=== PATIENT | female | born 2000 | race Caucasian/White ===

== ENCOUNTER 2023-06-19 16:02 | Outpatient (CLI) | payer BC, SELFPAY | END 2023-06-19 16:03 | disposition home or self-care (01) | LOC: NFLDREF 06-20 10:33 | PROVIDERS: Visit Provider Registered Nurse | DX: N91.2 Amenorrhea, unspecified (principal); Z13.9 Encounter for screening, unspecified; Z13.6 Encounter for screening for cardiovascular disorders | CPT/HCPCS: 80061; 83498; 84146; 84270; 84402; 84403; 84443 ==

== ENCOUNTER 2024-04-28 15:29 | Outpatient (CLI) | payer BC, OTHER, SELFPAY ==
--- NOTE | 2024-04-28 15:45 | CRLHL7_ITS ---
For Patients: As a result of the Century Cures Act, medical imaging exams and procedure reports are released immediately into your electronic medical record. You may view this report before your referring provider. If you have questions, please contact your health care provider. INDICATION: First trimester scan, establish dates. COMPARISON: None. TECHNIQUE: Real-time givens-scale imaging of the pelvis was performed. FINDINGS: Sonographic imaging demonstrates a single living intrauterine gestation. The embryo demonstrates a regular cardiac rate measuring 171 beats per minute. The embryo`s crown-rump length measurement of 2.1 cm corresponds to a gestational age of 8 weeks 5 days with a sonographic due date of 12/03/2024. There is a normal-appearing yolk sac. Umbilical cord cyst is present measuring 3 x 3 x 3 millimeters. The gestational sac has a normal appearance. There is no evidence of a perigestational hemorrhage. The amount of fluid within the sac appears appropriate for gestational age. The cervix is closed. The myometrium appears normal. The ovaries are of normal size. Corpus luteal cyst right ovary. There are no suspicious fluid collections noted in the cul-de-sac. IMPRESSION: Single living intrauterine with sonographic gestational age 8 weeks 5 days and sonographic due date of 12/03/2024. Umbilical cord cyst measures 3 x 3 x 3 millimeters. Short-term follow-up could be considered. Dictated by Daniel Garcia MD @ 04/29/2024 11:22:40 AM (Electronically Signed)
== END 2024-04-28 15:30 | disposition home or self-care (01) ==
PROVIDERS: Visit Provider Physician Assistant
DX: Z34.91 Encounter for supervision of normal pregnancy, unspecified, first trimester (principal); Z3A.08 8 weeks gestation of pregnancy
CPT/HCPCS: 76817

== ENCOUNTER 2024-04-28 17:03 | Outpatient (CLI) | payer BC, OTHER, SELFPAY ==
[2024-04-29 00:18] LABS: Chlamydia DNA Amplified* NOT DETECTED (No Detected); GC DNA Amplified* NOT DETECTED (No Detected)
== END 2024-04-28 17:04 | disposition home or self-care (01) ==
PROVIDERS: Visit Provider Physician Assistant
DX: Z34.91 Encounter for supervision of normal pregnancy, unspecified, first trimester (principal); Z12.4 Encounter for screening for malignant neoplasm of cervix; Z3A.09 9 weeks gestation of pregnancy
CPT/HCPCS: 83021; 86592; 86703; 86704; 86706; 86762; 86787; 86803; 86850; 86900; 86901; 87086; 87340; 87491; 87591; 87624; 87625; 88141; 88142

== ENCOUNTER 2024-05-07 15:34 | Outpatient (CLI) | payer BC, OTHER, SELFPAY | END 2024-05-07 15:35 | disposition home or self-care (01) | PROVIDERS: Visit Provider Obstetrics & Gynecology | DX: Z34.91 Encounter for supervision of normal pregnancy, unspecified, first trimester (principal); Z3A.10 10 weeks gestation of pregnancy | CPT/HCPCS: 82565; 82570; 84156; 84450; 84460 ==

== ENCOUNTER 2024-05-25 12:20 | Outpatient (CLI) | payer BC, OTHER, SELFPAY | END 2024-05-25 12:21 | disposition home or self-care (01) | LOC: NFLDREF 05-27 10:47 | PROVIDERS: PCP Obstetrics & Gynecology; Visit Provider Obstetrics & Gynecology | DX: O16.1 Unspecified maternal hypertension, first trimester (principal) | CPT/HCPCS: 82570; 84156 ==

== ENCOUNTER 2024-05-26 12:11 | Outpatient (CLI) | payer BC, OTHER, SELFPAY ==
--- NOTE | 2024-05-26 12:15 | CRLHL7_ITS ---
For Patients: As a result of the Cures Act, medical imaging exams and procedure reports are released immediately into your electronic medical record. You may view this report before your referring provider. If you have questions, please contact your health care provider. INDICATION: Follow-up umbilical cord cyst COMPARISON: 04/28/2024 TECHNIQUE: Real-time givens-scale imaging of the pelvis was performed. FINDINGS: Sonographic imaging demonstrates a single living intrauterine gestation. The embryo demonstrates a regular cardiac rate measuring 178 beats per minute. The embryo`s crown-rump length measurement of 6.3 cm corresponds to a gestational age of 12 weeks 5 days with a sonographic due date of 12/03/2024. The yolk sac is not visualized. There are no gross abnormalities noted within the embryo at this early state of development. The gestational sac has a normal appearance. There is no evidence of a perigestational hemorrhage. The amount of fluid within the sac appears appropriate for gestational age. Normal left ovary. Right ovary not visualized. Previously noted umbilical cord cyst is no longer present IMPRESSION: Single living intrauterine with sonographic gestational age 12 weeks 5 days and sonographic due date of 12/03/2024. Resolution of previously noted umbilical cord cyst. Dictated by Daniel Garcia MD @ 05/27/2024 10:20:58 AM (Electronically Signed)
== END 2024-05-26 12:12 | disposition home or self-care (01) ==
LOC: US 12:12
PROVIDERS: Visit Provider Physician Assistant
DX: O35.03X0 Maternal care for (suspected) central nervous system malformation or damage in fetus, choroid plexus cysts, not applicable or unspecified (principal); Z3A.12 12 weeks gestation of pregnancy
CPT/HCPCS: 76816

== ENCOUNTER 2024-07-02 07:58 | Outpatient (CLI) | payer BC, OTHER, SELFPAY | END 2024-07-02 07:59 | disposition home or self-care (01) | LOC: US 07:59 | PROVIDERS: Visit Provider Midwife | DX: O99.212 Obesity complicating pregnancy, second trimester (principal); Z68.42 Body mass index [BMI] 45.0-49.9, adult; Z3A.18 18 weeks gestation of pregnancy | CPT/HCPCS: 76811 ==

== ENCOUNTER 2024-07-30 14:05 | Outpatient (CLI) | payer BC, OTHER, SELFPAY | END 2024-07-30 14:06 | disposition home or self-care (01) | LOC: US 14:06 | PROVIDERS: Visit Provider Obstetrics & Gynecology | DX: O99.212 Obesity complicating pregnancy, second trimester (principal); E66.01 Morbid (severe) obesity due to excess calories; Z68.42 Body mass index [BMI] 45.0-49.9, adult; Z3A.22 22 weeks gestation of pregnancy | CPT/HCPCS: 76816 ==

== ENCOUNTER 2024-09-12 09:09 | Outpatient (CLI) | payer BC, OTHER, SELFPAY ==
--- NOTE | 2024-09-12 09:15 | CRLHL7_ITS ---
For Patients: As a result of the Cures Act, medical imaging exams and procedure reports are released immediately into your electronic medical record. You may view this report before your referring provider. If you have questions, please contact your health care provider. OB ULTRASOUND JESSICA by LMP or US: 11/30/2024. GA: 28 w, 5 d. Single. Comparison: 07/30/2024, 07/02/2024, 05/26/2024. INDICATION: Essential primary hypertension. TECHNIQUE: Real time grayscale imaging of the fetus was performed. Transabdominal. CERVIX: Not visualized. POSITIONING: Vertex. AMNIOTIC FLUID: 5.2 cm. SDP (N: greater than 2 x 1 cm) PLACENTA: Technique: Transabdominal. PLACENTA POSITION: Anterior. DOPPLER: heart rate: 152 bpm. BIOMETRY: BPD: 7.5 cm. 29 w, 6 d, 75 percent. HC: 26.4 cm. 28 w, 5 d, 19 percent. AC: 25.7 cm. 29 w, 6 d, 77 percent. FL: 5.4 cm. 28 w, 3 d, 25 percent. FL/AC ratio: 20.82 percent. HC/AC ratio: 1.03. EFW: 1364 g. Weight: 3 lbs, 0 oz. age by this US: 29 w, 2 d. JESSICA by this US: 11/26/2024. Percentile by JESSICA: 58 percent. IMPRESSION: 1. Sonographic gestational age 29 weeks 2 days and sonographic due date 11/26/2024. Sonographic age is 4 days ahead of clinical age. 2. Estimated weight 58th percentile. Abdominal circumference 77th percentile. Daniel Garcia M.D. Diagnostic Radiologist [email or web address] ISABELLA/maria isabel nicolas/Dictated by: Daniel Garcia MD @ 09/12/2024 10:16:00 AM (Electronically Signed)
== END 2024-09-12 09:10 | disposition home or self-care (01) ==
LOC: US 09:09
PROVIDERS: Visit Provider Obstetrics & Gynecology
DX: O10.913 Unspecified pre-existing hypertension complicating pregnancy, third trimester (principal); Z3A.28 28 weeks gestation of pregnancy
CPT/HCPCS: 76816; 86592

== ENCOUNTER 2024-10-08 13:54 | Outpatient (CLI) | payer BC, OTHER, SELFPAY ==
--- NOTE | 2024-10-08 14:00 | CRLHL7_ITS ---
For Patients: As a result of the Century Cures Act, medical imaging exams and procedure reports are released immediately into your electronic medical record. You may view this report before your referring provider. If you have questions, please contact your health care provider. OBSTETRICAL ULTRASOUND ??? BIOPHYSICAL PROFILE, 10/08/2024 INDICATION: Hypertension. Growth and biophysical profile. CLINICAL HISTORY: JESSICA by LMP: 11/30/2024 Gestational Age: 32 weeks 3 days COMPARISON: 09/12/2024, 07/30/2024, 07/02/2024 TECHNIQUE: Real-time givens-scale transabdominal of the fetus was performed. FINDINGS: Fetus: Single positioning: Vertex Amniotic Fluid: 5.0 cm SDP BIOPHYSICAL PROFILE: Gross body movements: 2 tone: 2 Respiratory activity: 2 Amniotic fluid SDP: 2 Total score: 8 Placenta technique: Transabdominal Placenta position: Anterior heart rate: 161 bpm BIOMETRY: BPD: 8.3 cm, 33 weeks 3 days, 72% HC: 30.7 cm, 34 weeks 2 days, 61% AC: 29.7 cm, 33 weeks 5 days, 84% FL: 6.3 cm, 32 weeks 5 days, 46% FL/AC Ratio: 21.28% HC/AC ratio: 1.03 EFW: 2201 grams; 4 lbs. 14 oz. age by this ultrasound: 33 weeks 4 days JESSICA by this ultrasound: 11/22/2024 Percentile by JESSICA: 73% IMPRESSION: 1. Sonographic gestational age 33 weeks 4 days and sonographic due date 11/22/2024. Sonographic age is 8 days ahead of the clinical age. 2. Estimated weight is 73rd percentile. Abdominal circumference is 84th percentile. 3. Normal biophysical profile score of 8/8. DANIEL SERRANO M.D. Diagnostic Radiologist [email or web address] Transcribed: 4:[address]/Dictated by: Daniel Serrano MD @ 10/08/2024 2:40:00 PM (Electronically Signed)
== END 2024-10-08 13:55 | disposition home or self-care (01) ==
LOC: US 13:54
PROVIDERS: Visit Provider Obstetrics & Gynecology
DX: O10.913 Unspecified pre-existing hypertension complicating pregnancy, third trimester (principal); O36.63X0 Maternal care for excessive fetal growth, third trimester, not applicable or unspecified; Z3A.32 32 weeks gestation of pregnancy
CPT/HCPCS: 76816; 76819; 82565; 82570; 84156; 84450; 84460

== ENCOUNTER 2024-10-15 13:36 | Outpatient (CLI) | payer BC, OTHER, SELFPAY ==
--- NOTE | 2024-10-15 13:45 | CRLHL7_ITS ---
For Patients: As a result of the Century Cures Act, medical imaging exams and procedure reports are released immediately into your electronic medical record. You may view this report before your referring provider. If you have questions, please contact your health care provider. INDICATION: Hypertension TECHNIQUE: Ultrasound OB pelvis transabdominal. Real-time givens-scale imaging of the fetus was performed with color Doppler and spectral Doppler analysis of the umbilical artery without stress testing. COMPARISON: 10/08/2024 FINDINGS: Sonographic imaging demonstrates a single living intrauterine gestation. Fetus demonstrates a regular cardiac rate of 145 beats per minute. Fetus has a cephalic orientation. The placenta lies anterior. Amniotic fluid volume appears normal with a MVP of 6.9 cm. breathing movements, motion, and tone were all observed. IMPRESSION: Single viable intrauterine with a biophysical profile 01/02. Dictated by Jayme West MD @ 10/15/2024 3:44:23 PM (Electronically Signed)
== END 2024-10-15 13:37 | disposition home or self-care (01) ==
LOC: US 13:36
PROVIDERS: Visit Provider Obstetrics & Gynecology
DX: O10.919 Unspecified pre-existing hypertension complicating pregnancy, unspecified trimester (principal)
CPT/HCPCS: 76819; 82565; 82570; 84156; 84450; 84460

== ENCOUNTER 2024-10-22 08:57 | Outpatient (CLI) | payer BC, OTHER, SELFPAY | END 2024-10-22 08:58 | disposition home or self-care (01) | LOC: NFLDREF 10-28 07:36 | PROVIDERS: Visit Provider Obstetrics & Gynecology | DX: Z34.03 Encounter for supervision of normal first pregnancy, third trimester (principal) | CPT/HCPCS: 82565; 82570; 84156; 84450; 84460; 87081; 87653 ==

== ENCOUNTER 2024-10-22 09:04 | Outpatient (CLI) | payer BC, OTHER, SELFPAY ==
--- NOTE | 2024-10-22 09:15 | CRLHL7_ITS ---
For Patients: As a result of the Cures Act, medical imaging exams and procedure reports are released immediately into your electronic medical record. You may view this report before your referring provider. If you have questions, please contact your health care provider. OB ULTRASOUND BIOPHYSICAL PROFILE, 10/22/2024 CLINICAL HISTORY: BMI, CHTN. COMPARISON: 10/15/2024, 10/08/2024, 09/12/2024. TECHNIQUE: Real time givens scale imaging of the fetus was performed. Transabdominal imaging performed. FINDINGS: JESSICA by LMP: 11/30/2024. GA: 34 weeks 3 days. CERVIX: Not visualized. POSITIONING: Vertex. AMNIOTIC FLUID: 6 cm SDP. BIOPHYSICAL PROFILE: Gross Body Movements: 2 Tone: 2 Respiratory Activity: 2 Amniotic Fluid SDP: 2 Total Score: 8/8 PLACENTA: Technique: TA. Placenta Position: Anterior. DOPPLERS: Heart Rate: 169 bpm. IMPRESSION: Normal biophysical profile score of 8/8. Daniel Garcia M.D. Diagnostic Radiologist [email or web address] Transcribed: 11:00 am DW/Dictated by: Daniel Garcia MD @ 10/22/2024 9:57:00 AM (Electronically Signed)
== END 2024-10-22 09:05 | disposition home or self-care (01) ==
PROVIDERS: Visit Provider Obstetrics & Gynecology
DX: O10.913 Unspecified pre-existing hypertension complicating pregnancy, third trimester (principal); O99.213 Obesity complicating pregnancy, third trimester; Z3A.34 34 weeks gestation of pregnancy
CPT/HCPCS: 76819; 82565; 82570; 84156; 84450; 84460

== ENCOUNTER 2024-10-29 12:07 | Outpatient (CLI) | payer BC, OTHER, SELFPAY ==
--- NOTE | 2024-10-29 12:15 | CRLHL7_ITS ---
For Patients: As a result of the Century Cures Act, medical imaging exams and procedure reports are released immediately into your electronic medical record. You may view this report before your referring provider. If you have questions, please contact your health care provider. INDICATION: Hypertension and increased body mass index TECHNIQUE: Ultrasound OB pelvis transabdominal. Real-time givens-scale imaging of the fetus was performed with color Doppler and spectral Doppler analysis of the umbilical artery without stress testing. COMPARISON: 10/22/2024 FINDINGS: Sonographic imaging demonstrates a single living intrauterine gestation. Fetus demonstrates a regular cardiac rate of 146 beats per minute. Fetus has a cephalic orientation. The placenta lies anterior. Amniotic fluid volume appears normal with a MVP of 5.1 cm. breathing movements, motion, and tone were all observed. IMPRESSION: Single viable intrauterine with a biophysical profile 01/02. Dictated by Jayme West MD @ 10/29/2024 2:12:57 PM (Electronically Signed)
== END 2024-10-29 12:08 | disposition home or self-care (01) ==
LOC: US 12:07
PROVIDERS: Visit Provider Obstetrics & Gynecology
DX: O10.919 Unspecified pre-existing hypertension complicating pregnancy, unspecified trimester (principal); O99.210 Obesity complicating pregnancy, unspecified trimester
CPT/HCPCS: 76819; 82565; 82570; 84156; 84450; 84460

== ENCOUNTER 2024-11-05 08:58 | Outpatient (CLI) | payer BC, OTHER, SELFPAY ==
--- NOTE | 2024-11-05 09:15 | CRLHL7_ITS ---
For Patients: As a result of the Century Cures Act, medical imaging exams and procedure reports are released immediately into your electronic medical record. You may view this report before your referring provider. If you have questions, please contact your health care provider. OB ULTRASOUND BIOPHYSICAL PROFILE FOLLOWUP LIMITED, 11/05/2024 JESSICA by LMP: 11/30/2024. GA: 36 w, 3 d. Single. Comparison: US 10/29/2024, 10/22/2024, 10/15/2024, 10/08/2024. INDICATION: HTN. TECHNIQUE: Real time givens scale imaging of the fetus was performed. Transabdominal. CERVIX: Not visualized. POSITIONING: Vertex. AMNIOTIC FLUID: 5.5 cm. SDP (N: greater than 2 x 1 cm) BIOPHYSICAL PROFILE: Total score: 2. Gross body movements: 2. tone: 2. Respiratory activity: 2. Amniotic fluid: 2. (SDP N: greater than 2 x 1 cm) Total Score: 8/8. PLACENTA: Technique: Transabdominal. PLACENTA POSITION: Anterior. DOPPLER: heart rate: 144 bpm. BIOMETRY: BPD: 9.5 cm. 38 w, 5 d, >97 percent. HC: 34.1 cm. 39 w, 2 d, 86 percent. AC: 33.8 cm. 37 w, 5 d, 90 percent. FL: 6.9 cm. 35 w, 4 d, 25 percent. FL/AC ratio: 20.50 percent. HC/AC ratio: 1.01. EFW: 3228 g. Weight: 7 lbs, 2 oz. age by this US: 37 w, 6 d. JESSICA by this US: 11/20/2024. Percentile by JESSICA: 81 percent. IMPRESSION: 1. Normal biophysical profile 01/02. 2. Sonographic gestational age 37 weeks 6 days and sonographic due date 11/20/2024. Sonographic age is 10 days ahead of the clinical age. 3. Estimated weight 81st percentile. Abdominal circumference 90th percentile. BPD greater than 97th percentile. Daniel Garcia M.D. Diagnostic Radiologist [email or web address] ISABELLA/ever JR/Dictated by: Daniel Garcia MD @ 11/05/2024 9:52:00 AM (Electronically Signed)
== END 2024-11-05 08:59 | disposition home or self-care (01) ==
LOC: US 08:59
PROVIDERS: Visit Provider Obstetrics & Gynecology
DX: O10.913 Unspecified pre-existing hypertension complicating pregnancy, third trimester (principal); O36.63X0 Maternal care for excessive fetal growth, third trimester, not applicable or unspecified; Z3A.36 36 weeks gestation of pregnancy
CPT/HCPCS: 76816; 76819; 82565; 82570; 84156; 84450; 84460

== ENCOUNTER 2024-11-11 11:46 | Outpatient (CLI) | payer BC, OTHER, SELFPAY ==
[2024-11-11] VITALS (10 sets, daily range): BP systolic 119–129; BP diastolic 65–71; PULSE 87–95; RESP 16; O2SAT 97
[2024-11-11 12:51] LABS: Blood Urea Nitrogen* 8 mg/dL (5-24); Creatinine* 0.5 mg/dL (0.5-1.5); Estimated Glomerular Filt Rate 133 ml/min
[2024-11-11 12:51] LABS: Total Protein Urine 18 mg/dL
[2024-11-11 12:52] LABS: Alanine Aminotransferase* 18 U/L (4-35); Aspartate Amino Transferase* 22 U/L (12-35)
[2024-11-11 12:52] LABS: Creatinine Urine 194.1 mg/dL; Protein Creatinine Ratio Urine 0.09 (0-0.19)
[2024-11-11 12:54] LABS: Hematocrit 38.1 % (33.0-51.0); Hemoglobin* 12.5 gm/dL (12.0-16.0); Mean Corpuscular HGB Conc 33 gm/dL (32-36); Mean Corpuscular Hemoglobin 28 pg (26-34); Mean Corpuscular Volume 86 fL (80-100); Platelet Count* 374 K/uL (140-440); Red Blood Count 4.43 m/uL (4.00-5.20)
[2024-11-11 13:10] LABS: Slide Review Reflex No
--- NOTE | 2024-11-11 14:40 | PC.OBNST ---
NST Note NST Note Start: 11/11/24 12:04 Freq: ONCE Status: Active Protocol: Document 11/11/24 14:19 JRS (Rec: 11/11/24 14:21 JRS No Response) NST Note 1 Para (# of births) 0 EDC 12/01/24 Gestational Age In 37 Weeks & 1 Days Weeks & Days High Risk Factors High Blood Pressure - Preexisting Patient Presented Other with Complaint(s) of Other Complaints Increased BPs at home Reactive Yes ANGELO Mcgraw RN Date 11/11/24 Reactive Yes ANGELO Gonsalves RN Date 11/11/24 OB NST charge Yes Complete NST Note Yes via Write Note The provider's electronic signature indicates the NST is reactive/appropriate for gestational age. *Note to provider: If an addendum is required, open the patient's chart and click on the note under the Nurse/Allied Health tab.
== END 2024-11-11 14:00 | disposition home or self-care (01) ==
LOC: OB OUT 11:52 → OB 11:52
PROVIDERS: Visit Provider Obstetrics & Gynecology
DX: O10.913 Unspecified pre-existing hypertension complicating pregnancy, third trimester (principal); Z3A.37 37 weeks gestation of pregnancy
CPT/HCPCS: 36415; 59025; 82565; 82570; 84156; 84450; 84460; 84520; 85027; G0463

== ENCOUNTER 2024-11-12 09:10 | Outpatient (CLI) | payer BC, OTHER, SELFPAY ==
--- NOTE | 2024-11-12 09:15 | CRLHL7_ITS ---
For Patients: As a result of the Cures Act, medical imaging exams and procedure reports are released immediately into your electronic medical record. You may view this report before your referring provider. If you have questions, please contact your health care provider. OB ULTRASOUND JESSICA by LMP or US: 11/30/2024. GA: 37 w, 3 d. Single. Comparison: Ultrasound 11/05/2024, 10/29/2024, . INDICATION: Obesity. TECHNIQUE: Real time grayscale imaging of the fetus was performed. Transabdominal. CERVIX: Not visualized. POSITIONING: Vertex. AMNIOTIC FLUID: 4.8 cm. SDP (N: greater than 2 x 1 cm) BIOPHYSICAL PROFILE: 2: Gross body movements 2: tone 2: Respiratory activity 2: Amniotic fluid SDP (N: greater than 2 x 1 cm) 8/8: Total score PLACENTA: Technique: Transabdominal. PLACENTA POSITION: Anterior. DOPPLER: heart rate: 130 bpm. IMPRESSION: Normal biophysical profile score 8/8. Daniel Garcia M.D. Diagnostic Radiologist [email or web address] ISABELLA/maria isabel nicolas/Dictated by: Daniel Garcia MD @ 11/12/2024 9:35:00 AM (Electronically Signed)
== END 2024-11-12 09:11 | disposition home or self-care (01) ==
LOC: US 09:10
PROVIDERS: Visit Provider Obstetrics & Gynecology
DX: O99.213 Obesity complicating pregnancy, third trimester (principal); Z3A.37 37 weeks gestation of pregnancy
CPT/HCPCS: 76819; 82565; 82570; 84156; 84450; 84460

== ENCOUNTER 2024-11-19 12:02 | Outpatient (CLI) | payer BC, OTHER, SELFPAY ==
--- NOTE | 2024-11-19 12:15 | US_ITS ---
Patient: KARIE RAY Facility:?[facility] Patient ID:?[id number] Site Patient ID:?[id number]. Site :?[id number] Study:?US-OB Pelvis BPP-11/19/2024 12:39:52 PM Ordering Physician:Jaspal Silveira Final Report: OB ULTRASOUND BIOPHYSICAL PROFILE JESSICA by LMP: 11/30/2024. GA: 38 w, 3 d. Single. Comparison: 11/12/2024, 11/05/2024, 10/29/2024. INDICATION: BMI, CHTN. TECHNIQUE: Real time givens scale imaging of the fetus was performed. Transabdominal imaging performed. CERVIX: Not visualized. POSITIONING: Vertex. AMNIOTIC FLUID: 6.0 cm SDP (N: greater than 2 x 1 cm) BIOPHYSICAL PROFILE: Gross body movements: 2. tone: 2. Respiratory activity: 2. Amniotic fluid: 2. SDP (N: greater than 2 x 1 cm). Total score: 8. PLACENTA: Technique: Transabdominal. PLACENTA POSITION: Anterior. DOPPLER: heart rate: 137 bpm. IMPRESSION: Normal biophysical profile 01/02. Daniel Garcia M.D. Diagnostic Radiologist [email or web address] DSM/sp D& Transcribed: 5:27 p.m. SP/Dictated by: Daniel Garcia MD @ 11/19/2024 2:40:00 PM Signed by:?Daniel Garcia MD @11/20/2024 6:45:41 AM (Electronic Signature)
--- OUTSIDE RECORDS SUMMARY | 2024-11-20 00:34 | XMS_ITS | Clinical Summary ---
Author Organization [facility] Address [address] [place] [address]. 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 Name Role Phone No Ref-Primary, Physician Primary Care Provider Encounters Date Type Department Care Team Description 09/17/2024 1:47 PM CDT - 09/17/2024 11:59 PM CDT Hospital Encounter [facility] [address] [place] [phone] Nathalie Nicholson MD Urmfmusfet related condition, antepartum Discharge Disposition: Home or Self Care 09/17/2024 Office Visit [facility] [address] [place] [phone] Echo Diaz MD cardiac disease affecting , single or unspecified fetus (Primary Dx) 09/17/2024 Travel from Last 3 Months Social History Tobacco Use Types Packs/Day Years Used Date Smoking Tobacco: Never Assessed Comments Unknown Sex and Gender Information Value Date Recorded Sex Assigned at Not on file Legal Sex Female 3:16 PM CDT Gender Identity Not on file Sexual Orientation Not on file Plan of Treatment Health Maintenance Due Date Last Done Comments ADVANCE CARE PLANNING 1999 ANNUAL REVIEW OF HM ORDERS 1999 YEARLY PREVENTIVE VISIT 10/07/2002 HIV SCREENING 10/07/2014 HEPATITIS C SCREENING 10/07/2017 PNEUMOCOCCAL VACCINE: PEDIATRICS (0 to 5 YEARS) AND AT-RISK PATIENTS (6 to 49 YEARS) (1 of 2 - PCV) 10/07/2018 01/15/2001, 10/12/2000, 07/16/2000 PAP 10/07/2020 PHQ-2 (once per calendar year) 2024 DTAP/TDAP/TD VACCINE (8 - Td or Tdap) 05/08/2032 05/08/2022, 12/08/2010, 10/10/2004, Additional history exists ZOSTER VACCINE (1 of 2) 10/07/2049 HEPATITIS B VACCINE Completed 04/16/2000, 02/20/2000, 1999 MENINGITIS VACCINE Completed 06/14/2017, 12/08/2010 HPV VACCINE Completed 05/29/2023, 07/27, 06/14/2017 COVID-19 VACCINE Completed 05/26/2024, 01/2021, 10/14/2020 INFLUENZA VACCINE Completed 05/26/2024 MENINGITIS B VACCINE Aged Out No long er eligible based on patient's age to complete this topic Procedures Procedure Name Priority Date/Time Associated Diagnosis Comments ECHO COMPLETE Routine 09/17/2024 2 :11 PM CDT related condition, antepartum from Last 3 Months Results * ECHO COMPLETE (09/17/2024 2:11 PM CDT) Anatomical Region Laterality Modality Ultrasound 09/17/2024 1:53 PM CDT Narrative 09/17/2024 2:14 PM CDT [id number]^NON-FV CREDENTIALED PROVIDER^RADIOLOGY Study ID: [id number] [facility] [address] [address] Echocardiogram Name: DENI LEE Study Date: 09/17/2024 01:53 PM Patient Location: [facility] Gender: Female Patient Class: Outpatient : 2000 Age: 23 yrs Ordering Provider: NON-FV CREDENTIALED PROVIDER, RADIOLOGY Referring Provider: NATHALIE NICHOLSON Performed By: Marlene Urena RDCS Reading Physician: Echo Diaz MD Reason For Study: related condition, antepartum Data: Number of fetuses: This is a marin gestation. Due date: 11/30/2024. Gestational age: 29w3d. Delivery at: [place]. Specific Indication: echocardiogram performed for suboptimal views of heart on ultrasound. CONCLUSIONS Technically difficult study. Likely normal echocardiogram. Normal intracardiac connections. Normal right and left ventricular size and function. No pericardial effusion. The results of the echocardiogram were explained to the patient. She is aware that the study was within normal limits with no major cardiac abnormalities. She is aware of the general limitations of echocardiography. No additional echocardiograms are recommended. No cardiac follow-up is required. Technical Information: The study quality is good. Difficult study due to position and poor imaging windows. position and segmental anatomy: The fetus in vertex position. The heart is in left chest. The cardiac apex points towards the left. There is normal atrial arrangement, with concordant atrioventricular and ventriculoarterial connections. The abdominal aorta is to the left of the spine. There is a left sided stomach. Systemic and pulmonary veins: The systemic venous return is normal. At least one right and one left pulmonary veins are seen returning to the left atrium. Atria and atrial septum: Normal right atrial size. The left atrium is normal in size. The flap of the foramen ovale opens in to the left atrium. There is laminar juyxs-qm-mfic shunting across the foramen ovale. Atrioventricular valves: The tricuspid valve is normal in appearance and motion. There is no tricuspid insufficiency. The mitral valve is normal in appearance and motion. There is no mitral valve insufficiency. Ventricles and ventricular septum: Normal right ventricular size. Normal right ventricular systolic function. Normal left ventricular size. Normal left ventricular systolic function. No obvious ventricular level shunting. Outflows tracts: Normal great artery relationship. The right ventricular outflow tract is normal in caliber. The pulmonary valve has normal appearance and motion. There is normal flow across the pulmonary valve. There is unobstructed flow through the left ventricular outflow tract. The aortic valve has normal appearance and motion. There is normal flow across the aortic valve. Great arteries: The main pulmonary artery has normal appearance. There is unobstructed flow in the main pulmonary artery. The pulmonary artery bifurcation is normal. There is unobstructed flow in both branch pulmonary arteries. The ductus arteriosus has normal appearance with normal antegrade flow. There is unobstructed antegrade flow in the ascending aorta. The aortic arch appears normal. There is unobstructed antegrade flow in the aortic arch. Effusions and extracardiac findings: No pericardial effusion. No hydrops. cardiac rhythm: heart rate is regular at 126 bpm. Doppler: There is normal flow in the ductus venosus, umbilical artery and umbilical vein. echocardiography cannot rule out small atrial or ventricular septal defects, persistent ductus arteriosus, mild coarctation of the aorta, partial anomalous pulmonary venous return, minor anatomic valve anomalies or coronary artery anomalies. Reading Physician: Echo Diaz MD 09/17/2024 02:14 PM Procedure Note Echo Diaz MD - 09/17/2024 [id number]^NON-FV CREDENTIALED PROVIDER^RADIOLOGY Study ID:[id number] [facility] [address] Echocardiogram Name: DENI LEE Study Date: 09/17/2024 01:53 PM Patient Location:[facility] Gender: Female Patient Class:Outpatient : 2000 Age: 23 yrs Ordering Provider: NON-FV CREDENTIALED PROVIDER, RADIOLOGY Referring Provider: NATHALIE NICHOLSON Performed By: Marlene Urena RDCS Reading Physician: Echo Diaz MD Reason For Study: related condition, antepartum Data: Number of fetuses: This is a marin gestation. [place]: 11/30/2024. Gestational age: 29w3d. Delivery at: [place]. Specific Indication: echocardiogram performed for suboptimalviews of heart on ultrasound. CONCLUSIONS Technically difficult study. Likely normal echocardiogram. Normalfetal intracardiac connections. Normal right and left ventricular size andfunction. No pericardial effusion. The results of the echocardiogram were explained to the patient. Sheis aware that the study was within normal limits with no major cardiac abnormalities. She is aware of the general limitations of echocardiography. No additional echocardiograms are recommended.No cardiac follow-up is required. Technical Information: The study quality is good. Difficult study due to position andpoor imaging windows. position and segmental anatomy: The fetus in vertex position. The heart is in left chest. The cardiacapex points towards the left. There is normal atrial arrangement, withconcordant atrioventricular and ventriculoarterial connections. The abdominal aortais to the left of the spine. There is a left sided stomach. Systemic and pulmonary veins: The systemic venous return is normal. At least one right and one left pulmonary veins are seen returning to the left atrium. Atria and atrial septum: Normal right atrial size. The left atrium is normal in size. The flap ofthe foramen ovale opens in to the left atrium. There is uzeizkmwdzcq-ks-niwq shunting across the foramen ovale. Atrioventricular valves: The tricuspid valve is normal in appearance and motion. There is notricuspid insufficiency. The mitral valve is normal in appearance and motion. Thereis no mitral valve insufficiency. Ventricles and ventricular septum: Normal right ventricular size. Normal right ventricular systolicfunction. Normal left ventricular size. Normal left ventricular systolic function.No obvious ventricular level shunting. Outflows tracts: Normal great artery relationship. The right ventricular outflow tract is normal in caliber. The pulmonary valve has normal appearance and motion.There is normal flow across the pulmonary valve. There is unobstructed flowthrough the left ventricular outflow tract. The aortic valve has normal appearanceand motion. There is normal flow across the aortic valve. Great arteries: The main pulmonary artery has normal appearance. There is unobstructedflow in the main pulmonary artery. The pulmonary artery bifurcation is normal.There is unobstructed flow in both branch pulmonary arteries. The ductusarteriosus has normal appearance with normal antegrade flow. There is unobstructed antegrade flow in the ascending aorta. The aortic arch appears normal.There is unobstructed antegrade flow in the aortic arch. Effusions and extracardiac findings: No pericardial effusion. No hydrops. cardiac rhythm: heart rate is regular at 126 bpm. Doppler: There is normal flow in the ductus venosus, umbilical artery andumbilical vein. echocardiography cannot rule out small atrial or ventricularseptal defects, persistent ductus arteriosus, mild coarctation of the aorta,partial anomalous pulmonary venous return, minor anatomic valve anomalies orcoronary artery anomalies. Reading Physician: Echo Diaz MD 09/17/2024 02:14 PM us Radiology Non-Fv Credentialed Provider CV PEDS E CHO ORDERABLES Edited Result - Final from Last 3 Months Insurance [facility] [id number] [facility] [place] [id number] [facility] Care Teams Bandmill Operator Relationship Specialty Start Date End Date No Ref-Primary, Physician PCP - General 08/12/24
== END 2024-11-19 12:03 | disposition home or self-care (01) ==
LOC: US 12:02
PROVIDERS: Visit Provider Obstetrics & Gynecology
DX: O10.913 Unspecified pre-existing hypertension complicating pregnancy, third trimester (principal); O99.213 Obesity complicating pregnancy, third trimester; Z3A.38 38 weeks gestation of pregnancy; O10.919 Unspecified pre-existing hypertension complicating pregnancy, unspecified trimester
CPT/HCPCS: 76819

== ENCOUNTER 2024-11-20 16:31 | Inpatient (IN) | payer BC, OTHER, SELFPAY ==
[2024-11-20] VITALS (9 sets, daily range): BP systolic 127–157; BP diastolic 70–98; PULSE 73–180; RESP 18; TEMP 36.6–36.8; O2SAT 80–100; BMI 53.3
--- NOTE | 2024-11-20 17:24 | W.PM.LDBA ---
Subjective History of Present Illness Date Seen: 11/20/24 Narrative: Patient is being admitted to Labor and Delivery for cervical ripening with IOL to follow. She is a 24 year old at 38 weeks, 4 days gestation. Her full history and physical was dictated by Dr. Adan on 11/05/24. Please see this for details. Her blood pressure is elevated at admission. Specific Issues/Plans G1 Partner: Jericho chang baby H&P: Loco on 11/05 # Chronic HTN (elevated outside of and at 10 weeks) [x] baseline preE labs - normal, UPCR 0.09 [x ] f/u 24 hour urine [x] nifedipine 30mg XL daily started on 05/07 [x ] f/u on home BP log at next visit ASA 81mg -taking Level 2 US: ordered. See below. Serial growth US starting at 28 weeks (BMI >40 and cHTN) testing with weekly labs starting at 32 weeks - plan BPP Delivery timing pending BP control - 37w0d - 39w6d per ACOG - requested IOL for 11/21 (ripening 11/20) as this is pt's father's birthday - agreeable to sooner PRN # obesity, BMI 45.4 # Excess weight gain of Referral to nutrition: declines [x] Referral to anesthesia MFM consult and level 2 ultrasound: 07/02/24 No anomalies. Still suboptimal cardiac views [x] echo 09/14/24 w/ MFM - technically difficult study, but normal Imaging: Level 2 US 07/02/24 Normal with suboptimal views, follow-up with MFM for views. F/U US with MFM 07/30/2024: Some anatomy visualized with suboptimal view of aortic arch or ductal arch. EFW 41.9%ile. echo recommended. Scheduled 09/17 per pt. Echo 09/17: Technically difficult study in the setting of obesity, likely normal echocardiogram. Visualized anatomy is within normal limits - nothing further required. 10/08: EFW 2201g at 73%ile, AC 84%ile. SDP 5.0cm, 8/ BPP. Vaccinations: Covid: 05/26/24 Flu: 05/26/24 Tdap: 09/26/24 RSV: NA GBS: neg on 10/22/24 32 week mental health:10/08/24 Last pap: 12/2/24 OB - Problem Based A/P Additional Plan (1) Chronic hypertension: Status: Acute (2) : Status: Acute (3) BMI 45.0-49.9, adult: Status: Acute Plan Cook catheter inserted in aseptic fashion. Intrauterine and intravaginal balloons inflated to 60 cc. Patient tolerate procedure well. Catheter was placed at 6:00 p.m.. Begin pitocin at low dose at 9 PM. Continuous monitoring at that time. HELLP labs now. She is currently taking nifedipine ER 30 mg at 7:00 a.m. daily. I will increase her dose to 30 mg ER b.i.d.. I will further increase if she has blood pressures that are elevated. Anticipate removal of Cook catheter at 6:00 a.m.. We will use Pitocin at usual doses for induction of labor at that point. Delivery/Labor/Induction Plan Induction method: Intracervical balloon catheter OB Exam Physical Exam Vital signs: Pulse BP Pulse Ox 77 141/98 H 99 11/20/24 17:06 11/20/24 17:06 11/20/24 17:06 Narrative: Physical exam: General: No acute distress Psych: Alert and oriented x3, full affect HEENT: Normocephalic, atraumatic Heart: Regular rate and rhythm, no murmur rub or gallop Lungs: Clear to auscultation bilaterally Abdomen: Soft, nontender, gravid, pannus folds over lower abdomen Lower extremities: 1+ edema, no erythema Pelvic exam: Cervix 1 cm, 50%,-3, anterior, firm tracing: Baseline 130 / accelerations present / no decelerations / moderate variability.
[2024-11-20 17:38] LABS: Basophils Percent Auto 0.1 % (0.0-3.0); Eosinophils Percent Auto 0.9 % (0.0-7.0); Hematocrit 38.4 % (33.0-51.0); Hemoglobin* 12.6 gm/dL (12.0-16.0); Immature Granulocytes Pct Auto 0.5 %; Lymphocytes Percent Auto 14.9 % (20-44); Mean Corpuscular HGB Conc 33 gm/dL (32-36); Mean Corpuscular Hemoglobin 28 pg (26-34); Mean Corpuscular Volume 86 fL (80-100); Neutrophils Percent Auto 77.6 % (42.0-72.0); Platelet Count* 315 K/uL (140-440); RDW Coefficient of Variation % 13.4 % (11.5-15.5); Red Blood Count 4.48 m/uL (4.00-5.20); White Blood Count* 14.11 K/uL (4.50-11.00)
[2024-11-20 17:40] LABS: Slide Review Reflex No
[2024-11-20 18:33] LABS: Alanine Aminotransferase* 30 U/L (4-35); Aspartate Amino Transferase* 54 U/L (12-35); Blood Urea Nitrogen* 16 mg/dL (5-24); Est. Creatinine Clearance* 80.51; Estimated Glomerular Filt Rate 80 ml/min
[2024-11-20] MEDS: NIFEdipine ER 30 MG TAB PO (19:06)
[2024-11-20 21:24] LABS: Total Protein Urine 37 mg/dL
[2024-11-20 21:25] LABS: Creatinine Urine 191.1 mg/dL; Protein Creatinine Ratio Urine 0.19 (0-0.19)
[2024-11-20] MEDS: OXYTOCIN 30 unit/500 ML in NS 30 UNIT/500 ML BAG IVPB (21:55)
[2024-11-20] MEDS: LACTATED RINGERS 1000 ML 1,000 ML 125 ML IV (21:56)
[2024-11-21] VITALS (62 sets, daily range): BP systolic 100–164; BP diastolic 56–100; PULSE 66–99; RESP 16–18; TEMP 36.4–36.9; O2SAT 95–100
[2024-11-21] MEDS: CEFAZOLIN 3 GM in 0.9 % SODIUM CHLORIDE Mini-bag 100 ML IVPB (00:25)
[2024-11-21] MEDS: MORPHINE 10 MG/ML inj IM (00:43)
[2024-11-21] MEDS: hydrOXYzine pamoate 25 MG CAPSULE 100 MG PO (00:44)
[2024-11-21] MEDS: LACTATED RINGERS 1000 ML 1,000 ML 125 ML IV ×2 (05:45→13:23)
[2024-11-21 06:33] LABS: Hemoglobin* 12.5 gm/dL (12.0-16.0); Mean Corpuscular HGB Conc 32 gm/dL (32-36); Mean Corpuscular Hemoglobin 28 pg (26-34); Mean Corpuscular Volume 86 fL (80-100); Platelet Count* 386 K/uL (140-440); Red Blood Count 4.52 m/uL (4.00-5.20); Slide Review Reflex No; White Blood Count* 15.87 K/uL (4.50-11.00)
[2024-11-21 06:43] LABS: Alanine Aminotransferase* 20 U/L (4-35); Aspartate Amino Transferase* 21 U/L (12-35); Blood Urea Nitrogen* 9 mg/dL (5-24); Creatinine* 0.5 mg/dL (0.5-1.5); Est. Creatinine Clearance* 161.02; Estimated Glomerular Filt Rate 133 ml/min
--- NOTE | 2024-11-21 08:09 | PM.OBPNVD1 ---
OB - PN:Subj Subjective Date Seen: 11/21/24 Narrative: 24 yo admitted last evening for cervical ripening/IOL for chronic hypertension. Cook catheter was placed overnight and removed this morning. She had cramping last evening and was able to sleep after receiving IM morphine. This morning, she feels well, has no complaints, and is largely unaware of contractions. OB - PN: Obj Exam Physical Exam: Vital signs: Temp Pulse Resp BP Pulse Ox 97.8 F 66 16 131/81 100 11/21/24 06:15 11/21/24 07:26 11/21/24 06:15 11/21/24 07:26 11/20/24 20:31 Constitutional: Constitutional: no acute distress Routine Respiratory Exam: Respiratory: Absent respiratory distress Routine Abdominal Exam: Comments: Gravid, soft OB - PN: Obj Data Labs Labs: Laboratory Results - last 24 hr 11/20/24 11/20/24 11/21/24 17:23 19:51 06:02 WBC 14.11 H 15.87 H RBC 4.48 4.52 Hgb 12.6 12.5 Hct 38.4 39.0 MCV 86 86 MCH 28 28 MCHC 33 32 RDW Coeff of Fatemeh 13.4 Plt Count 315 386 Neut % (Auto) 77.6 H Lymph % (Auto) 14.9 L [place] % (Auto) 6.0 Eos % (Auto) 0.9 Baso % (Auto) 0.1 Neut # (Auto) 10.90 H Lymph # (Auto) 2.10 [place] # (Auto) 0.80 Eos # (Auto) 0.10 Baso # (Auto) 0.00 Abs Immat Gran (auto) 0.10 Imm/Tot Granulo (auto) 0.5 BUN 16 9 Creatinine 1.0 0.5 Estimated Creat Clear 80.51 161.02 Estimated GFR 80 133 AST 54 H 21 ALT 30 20 Urine Creatinine 191.1 Protein/Creatinin Ratio 0.19 Urine Total Protein 37 Blood Type A Positive Antibody Screen NEGATIVE OB - PN: A/P Delivery Assessment and Plan (1) Chronic hypertension: Status: Acute (2) : Status: Acute (3) BMI 45.0-49.9, adult: Status: Acute
--- NOTE | 2024-11-21 08:17 | PM.OBPNL ---
Subjective Date Seen: 11/21/24 Narrative: 24 yo admitted last evening for cervical ripening/IOL for chronic hypertension. Cook catheter was placed overnight and removed this morning. She had cramping last evening and was able to sleep after receiving IM morphine. This morning, she feels well, has no complaints, and is largely unaware of contractions. She is sitting on a birthing ball. Nifedipine dosage was increased to 30 mg BID following admission due to elevated BP reading and elevated AST. BP stable overninght and AST normalized. Objective Exam: General appearance: Alert, oriented, no acute distress Pulm: Normal respiratory effort Abd: Soft, gravid, nontender Ext: 1+ edema Vital Signs: Last Vital Signs Temp 97.8 F 11/21/24 06:15 Pulse 66 11/21/24 07:26 Resp 16 11/21/24 06:15 BP 131/81 11/21/24 07:26 Pulse Ox 100 11/20/24 20:31 Pelvic Exam Dilation (cm): 2.5 Effacement (%): 70 Station: -3 Comments: Exam per nursing staff when Cook catheter removed at 0646. 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 Reassess in a few hours for amniotomy. Continue nifedipine ER 30 mg po BID.
[2024-11-21] MEDS: NIFEdipine ER 30 MG TAB PO ×2 (08:22→20:50)
--- NOTE | 2024-11-21 09:56 | PM.OBPNL ---
Subjective Time Seen by Provider: 09:56 Date Seen: 11/21/24 Narrative: Patient states that she has felt the last 2 contractions, otherwise has been pain free. Walking inthe room. Objective Vital Signs: Last Vital Signs Temp 97.8 F 11/21/24 08:24 Pulse 78 11/21/24 09:28 Resp 16 11/21/24 06:15 BP 122/70 11/21/24 09:28 Pulse Ox 100 11/20/24 20:31 Pelvic Exam Dilation (cm): 3.5 Effacement (%): 70 Station: -2 Contractions Monitor mode: External Contraction pattern: Irregular Contraction intensity: Mild Pitocin Rate (mU/min): 16 Assessment Assessment: induction ongoing Station: -2 Status: Category l Heart Rate Baseline: 135 Monitor Accelerations: Present Monitor Decelerations: None Plan Plan: Amniotomy performed following verbal consent. Continue to monitor. Epidural prn.
--- NOTE | 2024-11-21 13:36 | PM.OBPNL ---
Subjective Time Seen by Provider: 13:36 Date Seen: 11/21/24 Narrative: Patient is comfortable, barely feeling contractions. Was able to sleep. Still leaking clear fluid. Objective Vital Signs: Last Vital Signs Temp 98.3 F 11/21/24 12:30 Pulse 72 11/21/24 12:30 Resp 16 11/21/24 11:13 BP 139/80 11/21/24 12:30 Pulse Ox 99 11/21/24 12:30 Pelvic Exam Dilation (cm): 5 Effacement (%): 80 Station: -2 Contractions Monitor mode: External Contraction pattern: Regular Contraction intensity: Mild Pitocin Rate (mU/min): 20 Assessment Assessment: induction ongoing Station: -2 Status: Category l Heart Rate Baseline: 135 Shelter Variability: Moderate (6-25) Monitor Accelerations: Present Monitor Decelerations: None Plan Plan: IUPC placed to better monitor contractions which will help to titrate pitocin infusion.
[2024-11-21] MEDS: LABETALOL HCL 5 MG/ML inj IVP (15:33)
[2024-11-21] MEDS: MAGNESIUM IV 4 GM/100 ML PIGGYBACK IVPB (15:47)
[2024-11-21 16:18] LABS: Hematocrit 35.8 % (33.0-51.0); Hemoglobin* 11.8 gm/dL (12.0-16.0); Mean Corpuscular HGB Conc 33 gm/dL (32-36); Mean Corpuscular Hemoglobin 28 pg (26-34); Mean Corpuscular Volume 86 fL (80-100); Platelet Count* 348 K/uL (140-440); Red Blood Count 4.15 m/uL (4.00-5.20); White Blood Count* 16.08 K/uL (4.50-11.00)
[2024-11-21] MEDS: MAGNESIUM Infusion 40 GM/1,000 ML IV.SOLN IVPB (16:20)
[2024-11-21 16:23] LABS: Slide Review Reflex No
[2024-11-21 16:35] LABS: Alanine Aminotransferase* 19 U/L (4-35); Aspartate Amino Transferase* 20 U/L (12-35); Blood Urea Nitrogen* 9 mg/dL (5-24); Creatinine* 0.5 mg/dL (0.5-1.5); Est. Creatinine Clearance* 161.02; Estimated Glomerular Filt Rate 133 ml/min; Magnesium* 2.6 mg/dL (1.5-2.6)
[2024-11-21] MEDS: CALCIUM CARBONATE 500 MG CHEW PO (21:30)
[2024-11-21 22:15] LABS: Hematocrit 36.6 % (33.0-51.0); Hemoglobin* 12.2 gm/dL (12.0-16.0); Mean Corpuscular HGB Conc 33 gm/dL (32-36); Mean Corpuscular Hemoglobin 28 pg (26-34); Mean Corpuscular Volume 85 fL (80-100); Platelet Count* 350 K/uL (140-440); White Blood Count* 17.54 K/uL (4.50-11.00)
[2024-11-21 22:16] LABS: Slide Review Reflex No
[2024-11-21 22:37] LABS: Alanine Aminotransferase* 20 U/L (4-35); Aspartate Amino Transferase* 23 U/L (12-35); Blood Urea Nitrogen* 9 mg/dL (5-24); Creatinine* 0.5 mg/dL (0.5-1.5); Est. Creatinine Clearance* 161.02; Estimated Glomerular Filt Rate 133 ml/min
[2024-11-21] MEDS: LACTATED RINGERS 1000 ML 1,000 ML 75 ML IV (22:43)
[2024-11-21] MEDS: AZITHROMYCIN 500 MG in 0.9 % SODIUM CHLORIDE 250 ml 250 ML 255 MG IVPB (23:33)
--- NOTE | 2024-11-21 23:39 | P.OBPN_ITS ---
Subjective Time Seen by Provider: 23:10 Date Seen: 11/21/24 Narrative: Subjective: Comfortable with contractions. The patient went a Pitocin break for 30 minutes between 9:20-9:50 p.m. the Pitocin had gotten up to 24 milliunits/minute prior to it being turned off. It was restarted at 12 milliunits/minute and increased take 2 milliunits every 30 minutes. During the Pitocin break a spinning babies circuit was completed to try to advance cervical dilation and change presentation to promote cervical dilation. The patient had an IUPC placed at 1:30 p.m. on 11/21/2024 and had adequate labor by [place] units from 01:30pm to 9:20Pm so should have had change in cervical dilation over that time. At no time during the day did the patient rates her contractions more than 2-3/10 in discomfort. Pitocin: 16 milliunits/minute. Vital signs: Per electronic medical record. EFM: Baseline 135 bpm, positive accelerations, negative decelerations, moderate variability, reactive. Category 1. IUPC: Contractions every 5 minutes. On a video units less than 200 and 10 minutes since Pitocin was restarted at 9:50 p.m. SVE: 5 cm/80 %/-2: Unchanged since 1:30 p.m. on 11/21/2024. Assessment: 24-year-old 1 para 0 at 38 weeks 5 days gestation undergoing induction of labor for chronic hypertension now on magnesium for severe range blood pressure. Plan: 1. Recommend primary low-transverse section for failed induction of labor/arrest of dilation 2. She does not have an epidural so will be doing spinal anesthetic for the C- section. 3. Consent form reviewed, questions answered and the consent form signed. 4. Planning to use the Traxi pannus retractor due to patient's BMI > 45. 5. Pitocin stopped at 23:30. 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
--- NOTE | 2024-11-21 23:48 | P.PCN_ITS ---
Procedure Note Date Seen: 11/22/24 Date of procedure: 11/22/24 Will [facility] bill your pro fee for this procedure?: Yes Procedure: Preoperative diagnosis: 24-year-old 1 para 0 at 38 and 6/7 weeks * Failed induction of labor/arrest of dilation * Chronic hypertension with severe range blood pressure on magnesium for seizure prophylaxis * Obesity with a BMI of 45.0-49.9 Postoperative diagnosis: Same, ROT and asynclitic position Procedure: Primary low-transverse section Anesthesia: Spinal, TAPS block. Surgeon: Jeanette Jacobsen MD Mule Packer: Not applicable Quantitative blood loss: 481 mL IV Fluid: 1000 mL Urine output: 450 mL, clear urine at the end of the procedure Specimen: Placenta to pathology. Drain(s): Bro to gravity Findings: A live female infant was delivered from the ROT and asynclitic position at 12:49 a.m.. Apgars were 8 at 1 min and 9 at 5 min, respectively. Infant weight: 3310 g, 7 lb 5 oz. Nuchal cord(s): No nuchal cord. 1 true knot in the cord. The placenta was delivered spontaneously and complete at 12:51 a.m.. Amniotic fluid: Clear. Normal uterus, fallopian tubes and ovaries were noted. Procedure: Deni was taken to the OR where spinal anesthetic was found be adequate. A Bro catheter was placed. The patient was then placed in the dorsal supine position with a leftward tilt. A Traxi pannus retractor was applied to the patient's abdomen. She was then prepped and draped in a normal sterile manner. A Pfannenstiel skin incision was made and carried through sharply to the underlying layer of fascia. Fascia was incised in the midline and this incision carried laterally with Cuellar scissors. The superior aspect of fascial incision was grasped with Carolyn clamps, tented up, and the rectus muscles dissected off with a combination of blunt and sharp dissection. The inferior aspect of the fascial incision was grasped with Carolyn clamps, tented up and again the rectus muscles dissected off with a combination of blunt and sharp dissection. The rectus muscles were in the midline. The peritoneum was entered bluntly. This opening was extended bluntly. An Jordy-O self-retaining retractor was placed. A bladder flap was not created. Uterus was incised in a low transverse manner in the midline. This incision carried laterally with blunt pressure on the inferior and superior aspects of the uterine incision. The amniotic sac was ruptured. The infant's head and body was delivered atraumatically. The infant was shown to the patient and her support person. The umbilical cord was clamped and cut after a 45 second delay. The infant was then handed to waiting pediatric and nursing staff. The placenta was delivered spontaneously. The uterus was cleared of clots and debris. The uterine incision was re-approximated with the uterus in vivo. The 1st layer using 0-Vicryl in a running, locked manner. The 2nd layer using 0-Monocryl in a running, vertical, imbricating layer. Additional sutures needed for hemostasis: No. Excellent hemostasis was verified. The Jordy retractor was removed. The peritoneum was repaired using 2-0 Vicryl in a running manner. The rectus muscles were not reapproximated. The rectus muscles were then closely inspected to verify hemostasis. Hemostasis was obtained with bipolar cautery. The fascia was then re-approximated using 0-Maxon loop suture in a running manner. The subcutaneous tissue was then irrigated with saline and hemostasis obtained with bipolar cautery. The subcutaneous tissue was re-approximated using 3-0 plain gut interrupted sutures in 2 layers. The skin was reapproximated using 4-0 Monocryl in a running subcuticular manner. A silver-containing, Mepilex dressing was applied. The patient tolerated this procedure well. Sponge, lap and instrument counts were correct x2 active to the procedure. Patient was taken to the recovery area in stable condition. The patient received 3g of IV Ancef and 500mg IV azithromycin prior to skin incision. A surgical debrief was performed at the end of the procedure. Anesthesia: spinal and other (TAPS block) Surgeon: Jeanette Jacobsen Pathology: specimen obtained, sent to pathology
[2024-11-22] VITALS (45 sets, daily range): BP systolic 100–133; BP diastolic 63–82; PULSE 66–86; RESP 16–18; TEMP 36.5–36.7; O2SAT 92–99
[2024-11-22] MEDS: KETOROLAC 30 MG/ML inj IVP ×4 (01:25→19:38)
--- NOTE | 2024-11-22 02:09 | P.ANES_ITS ---
Anesthesia Charges Start Date/Time Anesthesia Start Date: 11/22/24 Anesthesia Start Time: 00:10 Stop Date/Time Anesthesia Stop Date: 11/22/24 Anesthesia Stop Time: 01:59 Summary Emergency: THERAPIST ASST Coding CPT Codes CPT Codes: ANESTH CS DELIVERY - 83535 ([id number]) P3 - PATIENT W/SEVERE SYS DISEASE, QZ - THERAPIST ASST SVC W/O HEARING CONSULTANT BY Additional Codes: Summary - Emergency: THERAPIST ASST ([id number])
--- NOTE | 2024-11-22 02:09 | W.ANESCHARGE ---
Anesthesia Charges Start Date/Time Anesthesia Start Date: 11/22/24 Anesthesia Start Time: 00:10 Stop Date/Time Anesthesia Stop Date: 11/22/24 Anesthesia Stop Time: 01:59 Summary Emergency: RESTORATION OFFICER Coding CPT Codes CPT Codes: ANESTH CS DELIVERY - 36748 ([id number]) P3 - PATIENT W/SEVERE SYS DISEASE, QZ - RESTORATION OFFICER SVC W/O NURSES AIDE BY Additional Codes: Summary - Emergency: RESTORATION OFFICER ([id number])
--- NOTE | 2024-11-22 02:10 | P.NB_ITS ---
Nerve Block Nerve Block Time Seen by Provider: 01:48 Date Seen: 11/22/24 Type of block requested by surgeon for post-operative analgesia: TAP Side: bilateral Time out performed: Yes Verification of patient name: Yes Verification of date of : Yes Site marking: not applicable Name of person performing procedure: Mani Continuous monitoring Was continuous monitoring of O2 sat, B/P, manager monitoring, recorded every 15 minutes?: Yes Procedure Checklist: sterile prep, needles and gloves Ultrasound guided. Images saved: Yes Medications given in 5ml increments after negative aspiration: Marcaine %: 0.25 mL: 30 Needle gauge: 20 and Exparel mL: 10 Patient tolerated procedure well: Yes Block Charges Block Charge (with Pro Fee): TAP Bilateral Use of Ultrasound Machine for Block: Yes- US Guidance/pain block
[2024-11-22] MEDS: LACTATED RINGERS 1000 ML 1,000 ML 75 ML IV ×2 (02:15→14:47)
[2024-11-22 06:40] LABS: Hematocrit 32.5 % (33.0-51.0); Hemoglobin* 10.7 gm/dL (12.0-16.0); Mean Corpuscular HGB Conc 33 gm/dL (32-36); Mean Corpuscular Hemoglobin 28 pg (26-34); Mean Corpuscular Volume 86 fL (80-100); Platelet Count* 322 K/uL (140-440); Red Blood Count 3.77 m/uL (4.00-5.20)
[2024-11-22 06:43] LABS: Slide Review Reflex No
[2024-11-22 06:59] LABS: Alanine Aminotransferase* 19 U/L (4-35); Aspartate Amino Transferase* 23 U/L (12-35); Blood Urea Nitrogen* 8 mg/dL (5-24); Creatinine* 0.5 mg/dL (0.5-1.5); Est. Creatinine Clearance* 161.02; Estimated Glomerular Filt Rate 133 ml/min
[2024-11-22] MEDS: NIFEdipine ER 30 MG TAB PO ×2 (09:07→21:15)
--- NOTE | 2024-11-22 10:02 | PM.OBPNVD1 ---
OB - PN:Subj Subjective Date Seen: 11/22/24 Narrative: Okay OB - PN: Obj Exam Physical Exam: Vital signs: Temp Pulse Resp BP Pulse Ox O2 Del Method 98 F 72 16 108/72 98 Room Air 11/22/24 07:30 11/22/24 08:58 11/22/24 09:54 11/22/24 08:58 11/22/24 08:58 11/22/24 08:58 Narrative: Bro in place with about 100cc of concentrated urine. SCDs in place. OB - PN: Obj Data Labs Labs: Laboratory Results - last 24 hr 11/21/24 11/21/24 11/22/24 16:07 22:08 06:30 WBC 16.08 H 17.54 H 18.20 H RBC 4.15 4.30 3.77 L Hgb 11.8 L 12.2 10.7 L Hct 35.8 36.6 32.5 L MCV 86 85 86 MCH 28 28 28 MCHC 33 33 33 Plt Count 348 350 322 BUN 9 9 8 Creatinine 0.5 0.5 0.5 Estimated Creat Clear 161.02 161.02 161.02 Estimated GFR 133 133 133 Magnesium 2.6 AST 20 23 23 ALT 19 20 19 OB - PN: A/P Delivery Assessment and Plan (1) Chronic hypertension: Problem details: With gestational exacerbation, severe-range BP Status: Acute Assessment and Plan: Continue magnesium sulfate infusion to complete 24 hours at around 1am tomorrow am. Continue labs q 6hrs. Continue close monitoring of vital signs, urine output, magnesium toxicity symptoms. Will continue PO Nifedipine 30mg BID. (2) : Status: Acute (3) BMI 45.0-49.9, adult: Status: Acute Assessment and Plan: SCDs in place, has scheduled Lovenox for later tonight. Plan day: 0 Plan: routine care
[2024-11-22] MEDS: MAGNESIUM Infusion 40 GM/1,000 ML IV.SOLN IVPB (12:10)
[2024-11-22 12:35] LABS: Hematocrit 33.3 % (33.0-51.0); Hemoglobin* 10.9 gm/dL (12.0-16.0); Mean Corpuscular HGB Conc 33 gm/dL (32-36); Mean Corpuscular Hemoglobin 28 pg (26-34); Mean Corpuscular Volume 86 fL (80-100); Platelet Count* 383 K/uL (140-440); Red Blood Count 3.87 m/uL (4.00-5.20); Slide Review Reflex No; White Blood Count* 19.49 K/uL (4.50-11.00)
[2024-11-22 12:50] LABS: Alanine Aminotransferase* 22 U/L (4-35); Aspartate Amino Transferase* 26 U/L (12-35); Blood Urea Nitrogen* 9 mg/dL (5-24); Creatinine* 0.6 mg/dL (0.5-1.5); Est. Creatinine Clearance* 134.18; Estimated Glomerular Filt Rate 128 ml/min
[2024-11-22 12:52] LABS: Magnesium* 4.9 mg/dL (1.5-2.6)
[2024-11-22 13:44] LABS: Rapid Plasma Reagin (RPR) Non Reactive (Non Reactive)
[2024-11-22 18:33] LABS: Hematocrit 31.7 % (33.0-51.0); Hemoglobin* 10.2 gm/dL (12.0-16.0); Mean Corpuscular HGB Conc 32 gm/dL (32-36); Mean Corpuscular Hemoglobin 28 pg (26-34); Mean Corpuscular Volume 88 fL (80-100); Platelet Count* 330 K/uL (140-440); Red Blood Count 3.61 m/uL (4.00-5.20); White Blood Count* 16.08 K/uL (4.50-11.00)
[2024-11-22 18:34] LABS: Slide Review Reflex No
[2024-11-22 18:48] LABS: Alanine Aminotransferase* 21 U/L (4-35); Aspartate Amino Transferase* 27 U/L (12-35); Blood Urea Nitrogen* 12 mg/dL (5-24); Creatinine* 0.7 mg/dL (0.5-1.5); Est. Creatinine Clearance* 115.01; Estimated Glomerular Filt Rate 123 ml/min
[2024-11-22 18:50] LABS: Magnesium* 4.9 mg/dL (1.5-2.6)
[2024-11-22] MEDS: ENOXAPARIN 40 MG/0.4 ML INJ SUBCUT (21:16)
[2024-11-22] MEDS: MEASLES,MUMPS,RUBELLA VACC/PF 1 DOSE INJ 1 EACH SUBCUT (21:30)
[2024-11-23] VITALS (7 sets, daily range): BP systolic 108–132; BP diastolic 73–87; PULSE 77–89; RESP 16–20; TEMP 36.7–36.9; O2SAT 96–99
[2024-11-23] MEDS: KETOROLAC 30 MG/ML inj IVP ×2 (02:06→07:30)
[2024-11-23] MEDS: SODIUM CHLORIDE 0.9 % (FLUSH) 10 ML SYRINGE IVF (07:30)
--- NOTE | 2024-11-23 09:16 | PM.OBPNVD1 ---
OB - PN:Subj Subjective Date Seen: 11/23/24 Patient comments OB post-: pain well controlled, tolerating diet and flatus present infant status: Narrative: Deni is a 24 y.o. who was admitted to [facility] for induction of labor due to chronic hypertension with superimposed preeclampsia without severe features. ?She had an uncomplicated due to arrest of dilation.?The patient feels well. ?The pain is well controlled with current medications. ?She has no new complaints. ?She is and reports things are going well.? the patient has done well.? Vitals have been stable.? She has remained afebrile.? Has a good appetite, is tolerating a general diet. ?She is voiding without difficulty.? She is passing gas and has not had a bowel movement.? She is ambulating and denies any dizziness.? Has small amount of rubra lochia. Magnesium sulfate infusion discontinued at around 1:00 a.m. today. Lab work monitoring completely normal. Patient denies DISTILLING DEPARTMENT SUPERVISOR irritability symptoms. Blood pressures have been well under control. OB - PN: Obj Exam Physical Exam: Vital signs: Temp Pulse Resp BP Pulse Ox O2 Del Method 98.1 F 86 18 113/74 99 Room Air 11/23/24 07:30 11/23/24 07:30 11/23/24 07:30 11/23/24 07:30 11/23/24 07:30 11/23/24 07:30 Narrative: GENERAL APPEARANCE:? normal affect, alert, no distress MOOD:? appropriate CHEST:? clear to auscultation HEART:? regular rate and rhythm ABDOMEN:? soft, non-tender the uterine fundus is cm At Umbilicus, Midline and is appropriate for the stage of recovery. EXTREMITIES:? bilateral pitting edema +2 up to ankles, no skin changes, no pain. Incision: Covered by silver dressing, looks dry and clean. OB - PN: Obj Data Labs Labs: Laboratory Results - last 24 hr 11/20/24 11/22/24 11/22/24 17:23 12:30 18:29 WBC 19.49 H 16.08 H RBC 3.87 L 3.61 L Hgb 10.9 L 10.2 L Hct 33.3 31.7 L MCV 86 88 MCH 28 28 MCHC 33 32 Plt Count 383 330 BUN 9 12 Creatinine 0.6 0.7 Estimated Creat Clear 134.18 115.01 Estimated GFR 128 123 Magnesium 4.9 H* 4.9 H* AST 26 27 ALT 22 21 RPR Screen Non Reactive OB - PN: A/P Delivery Assessment and Plan (1) Chronic hypertension: Problem details: With gestational exacerbation, severe-range BP Status: Acute Assessment and Plan: Magnesium sulfate infusion d/c at around 1am today. HELLP labs, all normal. Will not repeat unless there is concern for clinical changes. Continue close monitoring of vital signs, U/O, DISTILLING DEPARTMENT SUPERVISOR irritability symptoms. Continue Nifedipine ER 30mg BID. (2) : Status: Acute (3) BMI 45.0-49.9, adult: Status: Acute Assessment and Plan: Continue Lovenox while inpatient. She has been walking around the unit, encouraged to continue ambulation. Plan day: 1 Plan: routine care
[2024-11-23] MEDS: ACETAMINOPHEN 500 MG TABLET 1000 MG PO ×2 (12:24→19:43)
[2024-11-23] MEDS: NIFEdipine ER 30 MG TAB PO ×2 (12:24→21:43)
[2024-11-23] MEDS: DOCUSATE SODIUM 100 MG CAPSULE PO (12:25)
[2024-11-23] MEDS: IBUPROFEN 600 MG TABLET PO (16:48)
[2024-11-23] MEDS: ENOXAPARIN 40 MG/0.4 ML INJ SUBCUT (21:44)
[2024-11-24] MEDS: IBUPROFEN 600 MG TABLET PO ×3 (00:57→14:47)
[2024-11-24 01:00] VITALS: BP 134/86; PULSE 78; RESP 18; TEMP 36.7; O2SAT 98
[2024-11-24] MEDS: ACETAMINOPHEN 500 MG TABLET 1000 MG PO ×2 (04:49→11:09)
[2024-11-24 05:20] VITALS: BP 128/83; PULSE 78; RESP 16; TEMP 36.9; O2SAT 98
[2024-11-24 08:02] VITALS: BP 137/85; PULSE 80; RESP 16; TEMP 36.6; O2SAT 98
[2024-11-24] MEDS: NIFEdipine ER 30 MG TAB PO (09:04)
--- NOTE | 2024-11-24 09:47 | PM.OBPNVD1 ---
OB - PN:Subj Subjective Date Seen: 11/24/24 Interval history: Deni is a 24-year-old G1 now P 1-0-0-1 woman who is status post primary for failed IOL on 11/22/2024 at 38 weeks, 6 days gestation. This was in the setting of induction of labor for chronic hypertension complicating with BMI of 45.4 at onset of . She was diagnosed with superimposed preeclampsia with severe features by blood pressure criteria during her intrapartum course. Narrative: She is maintained on nifedipine ER 30 mg BID. OB - PN: Obj Exam Physical Exam: Vital signs: Temp Pulse Resp BP Pulse Ox O2 Del Method 97.9 F 80 16 137/85 98 Room Air 11/24/24 08:02 11/24/24 08:02 11/24/24 08:02 11/24/24 08:02 11/24/24 08:02 11/24/24 08:02 BPs have been normal range, 100s - 130s / 60s - 80s, since delivery . OB - PN: Obj Data Labs Labs: Last labs at 8:30 p.m. on 11/22/2024: Hemoglobin 10.2, platelets 330 Creatinine 0.7, transaminases normal OB - PN: A/P Delivery Assessment and Plan (1) Chronic hypertension: Problem details: With gestational exacerbation, severe-range BP Status: Acute (2) : Status: Acute (3) BMI 45.0-49.9, adult: Status: Acute
[2024-11-24 11:14] VITALS: BP 127/81; PULSE 83; RESP 16; O2SAT 98
--- NOTE | 2024-11-24 13:14 | P.DS_ITS ---
DS: Providers Provider Date Seen: 11/24/24 Date of admission: 11/20/24 16:31 Primary care physician: Not a Local Provider Admitting Clinician: Roxana Levine MD Attending Physician on discharge: Roxana Levine MD Date of Discharge: 11/24/24 DS: Diagnosis Discharge Diagnosis (1) Status post primary low transverse section: Status: Acute Problem details: Arrest of dilation/failed IOL. Olga. Odalys @ 0049 on 11/22/24. Apgars 8/9. 3310g = 7#5oz. (2) BMI 45.0-49.9, adult: Status: Acute (3) Chronic hypertension: Status: Acute Problem details: With gestational exacerbation, severe-range BP Exam Narrative: Exam Narrative: General: Pleasant, no acute distress Heart: Regular rate and rhythm, no murmur or gallop Lungs: Clear to auscultation bilaterally Abdomen: Normoactive bowel sounds in all 4 quadrants. Soft, nontender, fundus well below umbilicus, silver dressing clean, dry, and intact Lower extremities: 2+ edema to bilateral knees, no erythema Const: Vital Signs, click to edit/add: Vital Signs - 24 hr 11/23/24 17:00 11/23/24 21:30 11/24/24 01:00 Temperature 98.2 F 98.0 F 98.1 F Pulse Rate [Pulse Oximeter] 82 89 78 Respiratory Rate 18 20 18 Blood Pressure [Ri ght Arm] 124/75 125/82 134/86 Pulse Oximetry 99 98 98 Oxygen Delivery Me thod Room Air Room Air Room Air 11/24/24 05:20 11/24/24 08:02 11/24/24 11:14 Temperature 98.5 F 97.9 F Pulse Rate [Pulse Oximeter] 78 80 83 Respiratory Rate 16 16 16 Blood Pressure [Ri ght Arm] 128/83 137/85 127/81 Pulse Oximetry 98 98 98 Oxygen Delivery Me thod Room Air Room Air Room Air OB - DS: Summary Hospital Course Hospital Course: Deni is a 24-year-old G1 now P 1-0-0-1 woman who is status post primary for failed IOL on 11/22/2024 at 38 weeks, 6 days gestation. This was in the setting of induction of labor for chronic hypertension complicating with BMI of 45.4 at onset of . She was diagnosed with superimposed preeclampsia with severe features by blood pressure criteria during her intrapartum course. She is maintained on nifedipine ER 30 mg BID. Today, on postoperative day 2, she has no complaints. She is her infant daughter, Shauna. She denies any difficulty urinating. She is tolerating regular diet and has had a bowel movement. She denies any heavy bleeding. Last labs at 8:30 p.m. on 11/22/2024: Hemoglobin 10.2, platelets 330 Creatinine 0.7, transaminases normal Peripartum Data Procedures: Procedures Operation Date: 11/22/24 00:10 Actual Procedure Side Surgeon p Primary low Transverse Section Jeanette aJcobsen MD [place] Gender: Female Time Spent with Patient Time attestation: Total time spent providing and/or coordinating discharge services: Discharge Plan Discharge Disposition: Home, Self-Care Date of Admission: 11/20/24 16:31 Attending Provider on Discharge: Roxana Levine Consulting Providers: Aleida Callahan Primary Care Provider: Provider,Not a Local Condition: Stable Anticipated Discharge Date/Time: 11/24/24 13:22 Discharge Medications: New acetaminophen 500 mg Tablet 1,000 mg PO Q6H PRN (Reason: Pain) Qty: 0 0RF docusate sodium 100 mg Capsule 100 mg PO BID PRN (Reason: constipation) Qty: 0 0RF nifedipine 30 mg Tablet Extended Release 30 mg PO BID Qty: 60 0RF ibuprofen 600 mg Tablet 600 mg PO Q6H PRN (Reason: Pain) Qty: 60 0RF oxycodone 5 mg Tablet 5 - 10 mg PO Q4H PRN (Reason: Pain) Qty: 20 0RF Lanolin (HPA) 100 % Cream 1 applic topical Q1H PRNQty: 0 0RF Continued [id number] 3 fatty no.1 27-1-300 mg capsule 1 cap PO DAILY Rx Instructions: as directed orally; (DME) Blood Pressure Cuff Misc See Rx Instructions .Route Qty: 1 0RF Rx Instructions: As directed aspirin 81 mg tablet,chewable 81 mg PO QDAY Discontinued nifedipine 30 mg tablet extended release 30 mg PO QDAY Qty: 30 2RF Discharge Orders: Discharge Order (Routine); Ordered 11/24/24 Ordered By: Roxana Levine Patient Education: OB Over the Counter Medication Information, OB /Breast Feeding Additional Instructions: Discharge instructions were reviewed with the patient including signs and symptoms of infection and home going medications Lifting Restrictions: 20 pounds for 6 weeks No not submerge incision under water X 2 weeks? Nothing vaginally for 6 weeks: no tampons or intercourse Do not drive while taking narcotic pain medication(s) Off Work or School for 8 weeks Symptoms to report to doctor: * Bleeding that saturates more than one pad per hour * Passing clots larger than the size of a golf ball * Pain not relieved by prescribed medication * Fever above 100.4 degrees Fahrenheit * A foul vaginal odor * Difficulty in emotions, mood, and functions * Thoughts of hurting yourself and/or * Painful, reddened area in your breast * Any drainage, redness, or tenderness in your IV/epidural site * Severe headache that doesn't improve after taking medications * Changes in vision, including temporary loss of vision, blurred vision, and/or light sensitivity * Upper abdominal pain (usually under ribs on the right side) * Decrease in urination or painful, frequent urinating * Chest pain * Shortness of breath * Tenderness or pain with redness and/swelling in the calf(s) of your leg [facility] for a BP check?on 11/27 with removal of dressing at that time. Call with BP greater than or equal to 160/110 Optional 2-week visit: incision check, discuss infant feeding concerns, review control options and screen for anxiety/depression. 6-week visit for an annual exam. consultation services are available to all mothers and babies for the first year after delivery.? To make an appointment, please call [phone]. Activity Detail: as above Discharge Diet: Regular Follow Up Appointments: Provider,Not a Local [Primary Care Provider, Family Practice] [facility] [Provider Group] Forms: [facility] Info Instructions Discharge Comments: follow up for removal of dressing and BP check.
[2024-11-24 15:33] VITALS: BP 127/82; PULSE 78; RESP 16; TEMP 36.8; O2SAT 98
== END 2024-11-24 17:41 | disposition home or self-care (01) | DRG 540 ==
PROVIDERS: Obstetrics & Gynecology; Admitting Provider Obstetrics & Gynecology; Visit Provider Obstetrics & Gynecology
PROC: (CPT 59514; principal; 2024-11-21 23:45)
DX: O10.92 Unspecified pre-existing hypertension complicating childbirth (principal); O11.4 Pre-existing hypertension with pre-eclampsia, complicating childbirth; O61.0 Failed medical induction of labor; O61.1 Failed instrumental induction of labor; O62.0 Primary inadequate contractions; G89.18 Other acute postprocedural pain; O99.214 Obesity complicating childbirth; E66.9 Obesity, unspecified; O26.03 Excessive weight gain in pregnancy, third trimester; Z3A.39 39 weeks gestation of pregnancy; Z37.0 Single live birth; O10.919 Unspecified pre-existing hypertension complicating pregnancy, unspecified trimester
CPT/HCPCS: 01961; 36415; 59200; 64488; 76819; 76942; 82565; 82570; 83735; 84156; 84450; 84460; 84520; 85025; 85027; 86592; 86850; 86900; 86901; 99140; A4314; A9270; C1726; J0456; J0665; J0666; J0690; J1100; J1650; J1885; J2270; J2274; J2371; J2405; J2590; J2765; J3475; J7050; J7120